=== PATIENT | female | born 1965 | race Caucasian/White ===

== ENCOUNTER → 2017-05-27 | Outpatient (CLI) | payer OTHER | LOC: FIMAGING 10:50 | PROVIDERS: ATTEND Family Medicine | DX: Z12.31 Encounter for screening mammogram for malignant neoplasm of breast (principal) ==

== ENCOUNTER → 2018-08-04 | Outpatient (CLI) | payer OTHER | LOC: FIMAGING 11:52 | PROVIDERS: ATTEND Family Medicine | DX: Z12.31 Encounter for screening mammogram for malignant neoplasm of breast (principal) ==